=== PATIENT | female | born 1990 | race Caucasian/White ===

== ENCOUNTER 2019-03-30 01:31 | Emergency (ER) | payer OTHER ==
[~2019-03-30] VITALS: Ht 160 cm; Wt 81.6 kg
--- NOTE | 2019-03-30 02:21 | NUR ---
PT BIB FOR C/O FLU LIKE SYMPTOM X 3 DAYS, N/V, DIARRRHEA X 1 DAY. PT AAOX4, VSS, BRAETHING EVEN AND UNLABORED ON ROOM AIR W/ NAD NOTED. PT CONNECTED TO THE MONITOR AND POX.
[2019-03-30] MEDS ORDERED: ONDANSETRON HCL/PF 4 MG/2 ML VIAL ONE (02:55)
[2019-03-30] MEDS: ONDANSETRON HCL/PF 4 MG/2 ML VIAL IVP ONE (03:08)
[2019-03-30] MEDS: IV LR 1000 ML 1,000 ML IV ONE (03:08)
--- NOTE | 2019-03-30 03:08 | NUR ---
LAB DRAWN AND SENT TO LAB
[2019-03-30 04:15] VITALS: BP 121/78
--- NOTE | 2019-03-30 04:15 | NUR ---
Patient discharged to home in stable condition. Written and verbal after care instructions given. Patient verbalizes understanding of instruction.IV removed. Catheter intact and site benign. Pressure and 4x4 applied to site. No bleeding noted.
== END 2019-03-30 04:16 | disposition home or self-care (01) ==
LOC: ER 01:35
DX: R11.2 Nausea with vomiting, unspecified (principal); R19.7 Diarrhea, unspecified; Z90.89 Acquired absence of other organs; Z98.890 Other specified postprocedural states
CPT/HCPCS: 96361; 96374; 99283; J2405; J7120 ×2